=== PATIENT | female | born 1945 | race Caucasian/White ===

== ENCOUNTER 2024-04-05 14:02 | Outpatient (CLI) | payer MEDICARE | END 2024-04-05 14:03 | disposition home or self-care (01) | LOC: CSHMAMMO 14:02 | PROVIDERS: ATTEND Family Medicine | DX: Z78.0 Asymptomatic menopausal state (principal); M81.0 Age-related osteoporosis without current pathological fracture; M85.89 Other specified disorders of bone density and structure, multiple sites | CPT/HCPCS: 77080 ==

== ENCOUNTER 2024-04-17 02:42 | Emergency (ER) | payer MEDICARE ==
[2024-04-17] MEDS ORDERED: Lidocaine 1% w/Epinephrine 1:200K 30 ML VIAL ONE (05:10)
[2024-04-17] MEDS ORDERED: Boostrix 0.5 ML (Tdap) VIAL (>/=7 yrs of age) ONE (05:11)
[2024-04-17] MEDS ORDERED: Acetaminophen 500 MG TAB ONE (05:11)
[2024-04-17] MEDS ORDERED: Bacitracin 1 PK ONE (05:46)
== END 2024-04-17 05:49 | disposition home or self-care (01) ==
LOC: CSHERS 02:42
DX: S01.81XA Laceration without foreign body of other part of head, initial encounter (principal); E78.5 Hyperlipidemia, unspecified; K21.9 Gastro-esophageal reflux disease without esophagitis; Z23 Encounter for immunization; Z79.899 Other long term (current) drug therapy; W01.0XXA Fall on same level from slipping, tripping and stumbling without subsequent striking against object, initial encounter; Y92.009 Unspecified place in unspecified non-institutional (private) residence as the place of occurrence of the external cause
CPT/HCPCS: 12013; 70450; 71045; 72125; 90715